=== PATIENT | male | born 1965 | race Caucasian/White ===

== ENCOUNTER → 2016-07-24 | Outpatient (CLI) | payer OTHER | END | disposition home or self-care (01) | LOC: GMAL 10:32 | PROVIDERS: ATTEND Family Medicine | DX: Z12.5 Encounter for screening for malignant neoplasm of prostate (principal) ==

== ENCOUNTER → 2016-12-22 | Day surgery (SDC) | payer OTHER ==
--- NOTE | 2016-12-17 15:21 | SSS ---
CHIEF COMPLAINT: Need for screening colonoscopy. HISTORY OF PRESENT ILLNESS: Mr. Hodges is a 51 year-old male who presents to my office for routine followup. He is due for a colonoscopy. The risks and benefits were discussed and he is agreeable with proceeding. He denies any symptoms referable to his bowels, specifically no abdominal pain, changes in his bowel habits, blood in the stool or significant weight changes. PAST MEDICAL HISTORY: 1. Gastroesophageal reflux disease. 2. 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 He was treated for 6 months with Interferon and Ribavirin, and became cured at that point. His levels were still undetectable at most recent check. 3. Acute lymphocytic leukemia diagnosed in 1970. He had chemotherapy for 3-1/ 2 years. 4. Migraine headaches. 5. Seasonal allergies. PAST SURGICAL HISTORY: 1. Esophagogastroduodenoscopy by Dr. Loomis that showed Talbert's esophagus without dysphagia in December of 2014. Repeat EGD in May of 2016 showed gastritis and esophagitis with normal duodenum. Biopsies were negative for Talbert's or H. pylori at that time. 2. Nuclear stress test that showed normal perfusion with an ejection fraction of 65% in July of 2011. CURRENT MEDICATIONS: 1. Omeprazole. ALLERGIES: NONE. FAMILY HISTORY: Father has a history of congestive heart failure and arrhythmias, chronic atrial fibrillation and pey-ojboosv-ksupphrce diabetes mellitus. He also had emphysema and peripheral neuropathy and is . Mother has hypertension and hyperlipidemia. He has 2 brothers that are healthy. He had a paternal grandfather with prostate cancer and history of stroke. Paternal grandmother with hypertension and maternal grandmother with rheumatoid arthritis. SOCIAL HISTORY: He has a master's degree. 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 He was born in [place], [place]. He is and has 2 children. He has never smoked and has never consumed alcohol. REVIEW OF SYSTEMS: Negative except as per History of Present Illness. PHYSICAL EXAMINATION: VITAL SIGNS: Blood pressure 110/74, pulse 84, height 5' 8-1/2", weight 150. GENERAL: He is awake and alert in no acute distress. HEENT: Unremarkable. NECK: Supple. CHEST: Lungs are clear. CARDIOVASCULAR: Regular rate and rhythm. ABDOMEN: Soft and benign. EXTREMITIES: Without edema. NEUROLOGIC: No focal. RECTAL: Exam is deferred until time of colonoscopy. ASSESSMENT: 1. Need for screening colonoscopy. PLAN: Colonoscopy on 12/22/16. #[id number] ZAK
[~2016-12-22] MED LIST: LACTATED RINGERS 1,000 ML ONE; PROPOFOL 200 MG/20 ML VIAL IV ONE
--- NOTE | 2016-12-22 08:41 | OP ---
DATE OF PROCEDURE: 12/22/16 PREOPERATIVE DIAGNOSIS: 1. Screening colonoscopy. POSTOPERATIVE DIAGNOSIS: 1. 0.25 by 0.25 cm distal transverse colon polyp versus fold, biopsied times 3 to obliteration. 2. Otherwise normal colonoscopy to the cecum. PROCEDURE: 1. Colonoscopy. SURGEON: Anthony Baldwin MD. ESTIMATED BLOOD LOSS: Less than 1 mL. COMPLICATIONS: No immediate complications. ANESTHESIA: Propofol 3300 mg administered intravenously using monitored anesthesia care with Gino Katz CRNA. TECHNIQUE: After informed consent was obtained from the patient, the patient was taken to the Endoscopy Suite and placed in the left lateral decubitus position. Vital signs were monitored throughout the procedure. Supplemental oxygen was administered throughout the procedure. After adequate conscious sedation was obtained, digital rectal examination was performed, which showed a prostate that was not enlarged. There were no nodules or suspicious areas. The colonoscope was then advanced into the patient's rectum and up through the sigmoid, descending, transverse and ascending colon to the level of the cecum. The usual cecal landmarks were identified. The terminal ileum was entered and appeared normal. Photograph was taken of the cecum and inside the terminal ileum. The colonoscope was then slowly withdrawn. The overall bowel prep was noted to be quite good. There was some mild looping in the proximal colon, but we went in and out of this area multiple times and I feel that no polyps larger than 1 cm were missed in this area. Great care was taken to try to view all moon of the colon in 360 degree fashion. In the distal transverse colon, a small polyp versus fold was noted and biopsied times 3 to obliteration. No other abnormalities were noted throughout the entire colon. Overall, his bowel prep was quite good. In the rectum, the colonoscope was retroflexed upon itself. Minimal internal hemorrhoids were noted. The colonoscope was then unretroflexed and air was suctioned out of the patient's rectum. The colonoscope was removed from the patient. The patient tolerated the procedure well and was taken back to the recovery area in good condition. PLAN: Followup in my office in 7 to 10 days to review the pathology. Followup colonoscopy will be based on this pathology report, unlikely to be before 3 to 5 years, however. #[id number] [facility]
[2016-12-22 10:36] VITALS: BP 147/88; TEMP 97; O2SAT 99
== END ==
LOC: AMB 05:46
PROVIDERS: ATTEND Family Medicine
DX: Z12.11 Encounter for screening for malignant neoplasm of colon (principal); D12.3 Benign neoplasm of transverse colon; K21.9 Gastro-esophageal reflux disease without esophagitis; G43.909 Migraine, unspecified, not intractable, without status migrainosus; Z86.19 Personal history of other infectious and parasitic diseases; Z85.6 Personal history of leukemia; Z79.899 Other long term (current) drug therapy
CPT/HCPCS: 00810; 45380; J3490; J7120

== ENCOUNTER → 2017-02-15 | Outpatient (CLI) | payer OTHER | END | disposition home or self-care (01) | LOC: GMAL 10:48 | PROVIDERS: ATTEND Family Medicine | DX: N39.0 Urinary tract infection, site not specified (principal) ==

== ENCOUNTER → 2017-03-05 | Outpatient (CLI) | payer OTHER | END | disposition home or self-care (01) | LOC: GMAL 11:00 | PROVIDERS: ATTEND Family Medicine | DX: N34.1 Nonspecific urethritis (principal) ==

== ENCOUNTER → 2017-03-07 | Outpatient (CLI) | payer OTHER ==
--- NOTE | 2017-03-08 12:44 | US ---
EXAM DESCRIPTION: Thyroid: Ultrasound. CLINICAL HISTORY: NONTOXIC SINGLE THYROID NODULE COMPARISON: Limited ultrasound the abdomen the same visit. TECHNIQUE: Transcutaneous scannin-dimensional and Doppler modes. FINDINGS: Right lobe dimensions 4.8 x 1.9 x 1.5 cm. Heterogeneous echoes. Lower pole-2.7 x 2.0 x 1.5 mm hypoechoic nodule versus cyst. Nonvascular. Normal vascularity in the remainder of the lobe. No microcalcifications. Contour right lobe smooth. Juxta-thyroid masses/fluid: none. Left lobe dimensions 4.5 1.7 x 1.5 cm. Heterogeneous echoes. Mid lobe 1.2 x 1.0 x 0.7 cm. Complex nodule nonvascular. 3.6 x 3.5 mm small complex nodule nonvascular. Normal vascularity in the remainder of the lobe. No microcalcifications. Contour left lobe smooth. Juxta-thyroid masses/fluid: none. Isthmus thickness 1.8 mm. Heterogeneous echoes. No cystic, no solid, and no complex lesions. Normal vascularity. Contour smooth. IMPRESSION: 1. Complex nodule in the mid left lobe measures 7 mm transverse diameter, nonvascular. This nodule does not meet the imaging criteria for fine needle aspiration sampling according to RP best practice guidelines, adopted from ACR white paper and [place] 3-tiered guidelines on incidental thyroid nodules. Please see below.* Small hypoechoic nodule or cyst in the right lobe. Smaller complex nodule in the left lobe. These nodules also are not candidates for tissue sampling/aspiration. These recommendations do not apply to patients with increased risk for thyroid cancer or patients with symptomatic thyroid disease. 2. No discrete solid masses, cystic masses, or edema in the surrounding soft tissues. *Further evaluation by thyroid US recommended for: -Solitary incidental thyroid nodule (ITN) with high risk imaging features (locally invasive nodule or suspicious lymph nodes) -Solitary ITN of any size in pediatric patients <= 18 years of age -Solitary ITN >= 1 cm in axial plane in patients between 18 and 35 years of age -Solitary ITN >= 1.5 cm in axial plane in patients >= 35 years of age -Heterogeneous enlarged thyroid gland -ITN avid on FDG-PET or other nuclear medicine (MIBI and octreotide) scans. FNA biopsy is also recommended for PET avid nodules. 2.No f/u imaging is recommended for ITN's not meeting the above criteria. 3.For multiple thyroid nodules, the above recommendations for solitary ITN are to be applied to the largest nodule. 4.No US or f/u recommended for ITN's without high risk features in patients with limited life expectancy or significant co-morbidities, unless clinically warranted. 5.These recommendations do not apply to patients w/ increased risk for thyroid cancer or patients with symptomatic thyroid disease. Recommendations for f/u of Incidental Thyroid Nodules (ITN) found on CT, MR, NM and Extrathyroidal US are based upon the ACR white paper and [place] 3-tiered system for managing ITN's: J Am [facility] 2015 Jun;12(2): 143-50 Electronically signed by: Giovanni Mcmahan MD 03/08/2017 12:43 PM CDT
--- NOTE | 2017-03-08 12:53 | US ---
EXAM DESCRIPTION: Abdomen,Limited: ULTRASOUND. CLINICAL HISTORY: GROSS HEMATURIA COMPARISON: . The ultrasound thyroid on the same visit TECHNIQUE: Transabdominal scannin-dimensional and Doppler modes. FINDINGS: Right kidney measures 10.5 x 5.9 x 4.2cm. Increased cortical echogenicity, 12 millimeter mid cortex thickness. 13 x 9 mm cyst in the mid kidney. No hydronephrosis, no large calcifications, and no perinephric fluid. Contour smooth and vascularity normal. Proximal ureter not visualized. Left kidney measures 10.0 x 4.4 x 4.3 cm increased cortical echogenicity; 13 mm mid cortex thickness. No hydronephrosis, no large calcifications, and no perinephric fluid. Contour smooth and vascularity normal. Proximal ureter not visualized. Urinary bladder was visualized. Prevoid volume 165.4 mL. No wall thickening. Bilaterally ureteral jets were not seen by Doppler. Post void volume 9.5 mL. No mass effect or prominent intravesicular mass. IMPRESSION: 1. Increased echogenicity in the bilateral renal cortices and minimal cortical thinning indicating medical renal disease. No hydronephrosis or perinephric fluid. Cyst in the mid right kidney. Ureters were not seen. 2. Urinary bladder was visualized. Patient able to void approximately 95% of initial volume. Bilateral ureteral jets were not seen by Doppler. No extrinsic mass. Electronically signed by: Giovanni Mcmahan MD 03/08/2017 12:52 PM CDT
== END ==
LOC: US 08:27
PROVIDERS: ATTEND Family Medicine
DX: E04.1 Nontoxic single thyroid nodule (principal); R31.0 Gross hematuria

== ENCOUNTER → 2017-03-22 | Outpatient (CLI) | payer OTHER ==
--- NOTE | 2017-03-22 22:53 | US ---
EXAM DESCRIPTION: Abdomen,Complete CLINICAL HISTORY: GENERALIZED ABDOMINAL PAIN COMPARISON: 03/07/2017 TECHNIQUE: Real-time sonographic images of the abdomen were obtained using a curved multihertz transducer. FINDINGS: The visualized portions of the pancreas are unremarkable. The visualized portions of the aorta and IVC are unremarkable. The liver has normal contour and echogenicity. The common bile duct measures 0.4 cm. cm. The gallbladder has a normal appearance. No gallstones identified. No wall thickening or pericholecystic fluid. The right kidney measures 9.9 cm in length. The left kidney measures 10.4 cm in length. No solid renal mass, shadowing renal calculi, or hydronephrosis. Mild increased cortical echogenicity. The spleen measures 10.4 cm in length.No abnormality of the spleen identified. IMPRESSION: 1. No sonographic abnormality to explain patient's symptoms., Specifically no gallstones. 2. Unchanged mildly increased renal cortical echogenicity which could be related to medical renal disease. Electronically signed by: Sandeep Peters 03/22/2017 10:51 PM CDT
== END | disposition home or self-care (01) ==
LOC: US 08:47
PROVIDERS: ATTEND Family Medicine
DX: R10.84 Generalized abdominal pain (principal)